=== PATIENT | male | born 1970 | race African-American/Black ===

== ENCOUNTER 2018-02-03 09:09 | Outpatient (CLI) | payer OTHER ==
--- NOTE | 2018-02-03 12:15 | ULT ---
UPPER EXTREMITY VEIN MAPPIN02/03/2018 HISTORY: A 48-year-old male with end-stage renal disease, undergoing evaluation for dialysis access placement. COMPARISON: None. TECHNIQUE: Multiplanar larose-scale sonographic imaging of the vascular structure of the bilateral upper extremiti es obtained with color-flow and spectral analysis, as described below. FINDINGS: Bilateral internal jugular veins, subclavian veins, and axillary veins are patent. The mid subclavia n vein could not be assessed, on the right, secondary to bandaging at a current dialysis access site. Basilic and cephalic veins are patent bilaterally. VESSEL DIAMETER Right brachial artery: 5 mm Right radial artery: 3 mm Right ulnar artery: 2 mm Left brachial artery: 6 mm Left radial artery: 4 mm Left ulnar artery: 4 mm RIGHT CEPHALIC VEIN Above elbow, proximal: 3.6 mm Above elbow, mid: 3.2 mm Above elbow, distal: 3.8 mm At elbow: 4.6 mm Below elbow: 3.1 mm Below elbow, mid: 2.9 mm Below elbow, distal: 2.9 mm RIGHT BASILIC VEIN Above elbow, proximal: 5.1 mm Above elbow, mid: 4.0 mm Above elbow, distal: 5.7 mm At elbow: 4.9 mm Below elbow: 3.1 mm Below elbow, mid: 2.2 mm Below elbow, distal: 2.3 mm LEFT BASILIC VEIN Above elbow, proximal: 5.4 mm Above elbow, mid: 6.0 mm Above elbow, distal: 4.5 mm At elbow: 3.8 mm Below elbow: 2.3 mm Below elbow, mid: 2.5 mm Below elbow, distal: 1.6 mm LEFT CEPHALIC VEIN Above elbow, proximal: 5.3 mm Above elbow, mid: 4.3 mm Above elbow, distal: 4.6 mm At elbow: 7.7 mm Below elbow: 3.9 mm Below elbow, mid: 3.7 mm Below elbow, distal: 3.7 mm IMPRESSION: Dialysis access vascular mapping as detailed above. POS: DAVIAN
== END 2018-02-03 09:10 | disposition home or self-care (01) ==
LOC: ULT 09:09
PROVIDERS: ATTEND Internal Medicine Nephrology
DX: Z01.818 Encounter for other preprocedural examination (principal); I12.0 Hypertensive chronic kidney disease with stage 5 chronic kidney disease or end stage renal disease; N18.6 End stage renal disease
CPT/HCPCS: 93970; G0365

== ENCOUNTER 2018-02-22 10:02 | Day surgery (SDC) | payer OTHER ==
[2018-02-21 16:36] VITALS: BMI 31.6
[2018-02-22] MEDS ORDERED: CEFAZOLIN/Water 2 GM/20 ML SYRINGE ONE (10:45)
[2018-02-22] MEDS ORDERED: Midazolam HCl 2 mg/2 ml Vial ONE ×3 (10:45→13:10)
[2018-02-22] MEDS ORDERED: hydrALAZINE 20 MG/ML VIAL ONE ×3 (10:48→11:52)
[2018-02-22] MEDS ORDERED: Labetalol HCl 100 MG/20 ML VIAL ONE (10:48)
[2018-02-22 10:57] LABS: Hemoglobin 10.3 g/dL (14.0-18.0); Mean Corpuscular HGB CONC 30.4 g/dL (32.0-36.0); Mean Corpuscular Hemoglobin 23.3 pg (27.0-31.0); Mean Corpuscular Volume 76.6 fL (78.0-98.0); Mean Platelet Volume 8.9 fL (7.4-10.4); Platelet Count 169 thou/uL (130-400); RBC Distribution Width 25.2 % (11.5-14.5); Red Blood Cell (RBC) Count 4.43 mill/uL (4.70-6.10); White Blood Cell (WBC) Count 5.6 thou/uL (4.8-10.8)
[2018-02-22 10:58] LABS: #Basophils 0.1 thou/uL (0.0-0.2); #Eosinphils 0.3 thou/uL (0.0-0.7); #Lymphocytes 0.9 thou/uL (1.20-3.40); #Monocytes 0.7 thou/uL (0.11-0.59); #Neutrophils 3.7 thou/uL (1.40-6.50); %Basophils 1.4 % (0.0-1.0); %Eosinophils 5.3 % (0.0-10.0); %Monocytes 11.5 % (0.0-10.0); %Neutrophils 65.9 % (42.0-75.0)
[2018-02-22 11:18] LABS: Anion Gap 15 mmol/L (10-20); BUN (Urea Nitrogen) 32 mg/dL (8.9-20.6); Calc. Creatinine Clearance 23 mL/min (70-130); Calcium 8.8 mg/dL (7.8-10.44); Carbon Dioxide 26 mmol/L (22-29); Chloride 104 mmol/L (98-107); Estimated GFR-MDRD 12; Glucose 92 mg/dL (70-105); Potassium 3.8 mmol/L (3.5-5.1); Sodium 141 mmol/L (136-145)
[2018-02-22 12:12] LABS: Hypochromia SLIGHT = 6-15 cells (100X) (0-5/hpf); MDiff Complete? YES; Microcytosis SLIGHT = 6-15 cells (100X) (0-5/hpf); PLT Morphology Comment Appears Adequate; Polychromasia SLIGHT = 2-3 cells (100X) (0-2/hpf); Schistocytes SLIGHT = 2-5 cells (100X) (0-1/hpf)
[2018-02-22] MEDS ORDERED: Fentanyl 100 MCG/2 ML VIAL ONE (12:50)
[2018-02-22] MEDS ORDERED: Heparin 10,000 UNITS/1 ML VIAL ONE (13:01)
[2018-02-22] MEDS ORDERED: Heparin 5,000 UNITS/ML VIAL ONE (13:01)
[2018-02-22] MEDS ORDERED: Heparin 10,000 UNITS/ 10 ML VIAL ONE ×2 (13:01→17:55)
[2018-02-22] MEDS ORDERED: Bupivacaine HCl 0.5%/Epinephrine 1:200,000/PF 30 ml Vial ONE ×2 (13:01→13:53)
[2018-02-22] MEDS ORDERED: Protamine Sulfate 50 MG/5 ML VIAL ONE (13:01)
[2018-02-22] MEDS ORDERED: Glycopyrrolate 0.2 MG/ML 5 ML SYRINGE ONE (13:01)
[2018-02-22] MEDS ORDERED: PROPOFOL 200 MG/20 ML VIAL ONE (13:01)
[2018-02-22] MEDS ORDERED: Lidocaine 1% PF 5 ML VIAL ONE (13:01)
[2018-02-22] MEDS ORDERED: Lidocaine 2% 10 ML INJ ONE (13:01)
[2018-02-22] MEDS ORDERED: Ondansetron HCl/PF 4 MG/2 ML Vial ONE (13:01)
[2018-02-22] MEDS ORDERED: Bupivacaine HCl 0.25%/Epi 0.0005/PF 10 ML VIAL FS ONE ×3 (13:53→14:00)
--- NOTE | 2018-02-22 14:16 | HP ---
DATE OF : 1970 HISTORY OF PRESENT ILLNESS: Tee Qureshi is a 48-year-old black male with hypertension, with diabe tic nephropathy culminating in a need for dialysis. He had at [facility] placement of ri ght IJ hemodialysis catheter 01/20/2018. He is followed by Dr. Zheng at [facility] and Dr. Andrei miller is his tank driver. He dialyzes at [facility] Wednesday, Wednesday, and Wednesday at 2:00 p.m. He is interested in peritoneal dialysis and has talked to the peritoneal dialysis nurse at [facility] is [place]. He has had vein mapping and veins in both arms are excellent and he is right handed. Th e patient has an umbilical hernia, but does not have inguinal hernias. He has diastasis recti. Plan is for laparoscopic umbilical hernia repair with mesh, laparoscopic peritoneal dialysis catheter and left arm primary fistula. He understands the risks and benefits of the procedure and consents. ALLERGIES: None. TOBACCO/ALCOHOL: Tobacco; 2-3 cigarettes a day. Alcohol none for more than 2 years. MEDICATIONS: Furosemide 80 mg a day, sevelamer 800 mg t.i.d., hydralazine 100 mg t.i.d., terazosin 1 0 mg by mouth b.i.d., isosorbide ER 60 mg every day a.m. PAST MEDICAL HISTORY: Hypertension, hyperlipidemia, end-stage renal disease on maintenance dialysis. PAST SURGICAL HISTORY: Hemodialysis catheter. He has had a normal colonoscopy. SOCIAL HISTORY: The patient is single. He has not worked in a few years. REVIEW OF SYSTEMS: Ten point noncontributory. FAMILY HISTORY: Noncontributory. PHYSICAL EXAMINATION: VITAL SIGNS: Weight 251 pounds, 6 feet 1 inches, 204/141, 93, 98.4 degrees. HEENT: Unremarkable. LUNGS: Clear to auscultation. CARDIAC: Regular rate and rhythm without murmur or gallop. ABDOMEN: Soft, diastasis recti, umbilical hernia, 1 cm defect. Groins without hernias. : Testicles normal. Patient examined standing and supine during Valsalva. EXTREMITIES: Chronic venous stasis disease, hyperpigmentation, mild edema of feet and ankles. NEURO: Neurologically intact. No focal deficit. HEENT: Unremarkable. No adenopathy appreciated. ASSESSMENT AND PLAN: 1. End-stage renal disease, desires peritoneal dialysis. I have talked to him about the risks and b enefits and possibility of malfunction of his hemodialysis catheter and necessity of revisions. I cates ve recommended placement of a left arm fistula. We will plan this next week. He also was appreciate d to have an umbilical hernia. The plan is for operation as described above under general anesthesia . He understands risks and benefits and consents. 2. Hypertension. 3. Chronic venous stasis disease.
[2018-02-22] MEDS ORDERED: SUGAMMADEX SODIUM 500 MG/5 ML VIAL ONE ×2 (15:46→15:47)
[2018-02-22] MEDS ORDERED: Promethazine HCl 25 MG/ML VIAL SLOW IVP PRN (16:06)
[2018-02-22] MEDS ORDERED: Promethazine HCl 25 MG/ML VIAL IM PRN (16:06)
[2018-02-22] MEDS ORDERED: Ondansetron HCl/PF 4 MG/2 ML Vial IVP PRN (16:06)
[2018-02-22] MEDS ORDERED: HYDROcodone/Acetaminophen 5/325 mg Tablet ONE (17:06)
--- NOTE | 2018-02-22 23:21 | OP ---
DATE OF PROCEDURE: 02/22/2018 PREOPERATIVE DIAGNOSES: End-stage renal disease on hemodialysis via right internal jugular vein cath eter, desires peritoneal dialysis and umbilical hernia. POSTOPERATIVE DIAGNOSES: End-stage renal disease on hemodialysis via right internal jugular vein cat heter, desires peritoneal dialysis and umbilical hernia. PROCEDURE: Laparoscopic 9 cm diameter mesh repair of umbilical hernia, laparoscopic peritoneal dialy sis catheter, double cuffed pigtail. Left Zander fistula, 4 mm coronary dilator outflow, cephalic ve in wrist, ligation of collaterals clips. SURGEON: Sumit Aiken M.D. ANESTHESIA: General. Local of 0.25% Marcaine with epinephrine, 60 mL was mixed with 2% Xylocaine, 2 0 mL. PROCEDURE IN DETAIL: The patient was taken to the operating room under general anesthesia, abdomen a nd left arm, axilla, chest prepared with ChloraPrep, draped in routine fashion. Local anesthetic inf iltrated into the skin and subcutaneous tissue about the operative site. Right lateral subcostal inc ision made. Pneumoperitoneum to 15 mmHg was obtained with the Veress needle, replacing it with 5 por t and video laparoscope inserted. Right lateral mid abdominal incision made and an 11 port placed. Right lower quadrant lateral incision made and a 5 port placed. There were some omental adhesions up per abdomen left in place to keep the omentum out of the pelvis. There is no umbilical hernia defect . I then made an incision infraumbilical, carried down the skin and subcutaneous tissue and the fasc ia approximated with [id number] type fashion with sutures of 0 PDS pop-offs. Subcutaneous tissu es approximated with 3-0 Monocryl, skin with subdermal 4-0 Monocryl and DermaGlue applied. Attention was then turned to peritoneal dialysis catheter placement. A counter incision was made periumbilica l left lower quadrant and stab incision made just inferior lateral to this for the exit site. An 8 m m port then inserted directly caudally and the subcutaneous tissue penetrating the rectus sheath visu alized laparoscopically, penetrating the peritoneum caudally and under laparoscopic visualization, a double cuffed pigtail peritoneal dialysis catheter placed and directed towards the pelvis. Then, the internal cuff placed in the rectus sheath and 8 mm port removed. [place] dissector were used to tu nnel the peritoneal dialysis catheter out the excess site, placed an external cuff beneath the skin e xit site and subcutaneous tissue was approximated with 3-0 Monocryl, skin with subdermal 4-0 Monocryl and catheter flushed with heparin saline solution and sterile dressings applied. Pneumoperitoneum r educed. All instruments removed after 11 mm port site GraNee needle used 0 Vicryl suture. Skin inci sions approximated with subdermal 4-0 Monocryl and DermaGlue applied. Sterile dressings applied. An incision was made in the left wrist carried down the skin and subcutaneous tissue longitudinally b etween the radial artery and cephalic vein, both of which were dissected free and the patient given 6 000 units heparin intravenously. After adequate circulation time, the cephalic vein on the hand side was ligated with 3-0 silk tie and branches divided between 4-0 silk ties and clips and spatulated an d interrogated with coronary dilators, passing coronary dilators from a 2 mm to a 4 mm coronary dilat or out the cephalic vein outflow, marking it in the forearm. Incision was made over collateral vesse ls and they were dissected free and clips applied. Skin approximated with subdermal 4-0 Monocryl. A t this point, radial arteries clamped proximally and distally and longitudinal arteriotomy made sharp ly for a 2.5 cm anastomosis. Vein accordingly spatulated and end vein to side radial artery anastomo sis. Continuous suture of 6-0 Prolene radial artery was of excellent caliber, vascular clamps were r eleased and there was excellent flow in the fistula interrogated by Doppler. The patient was given 5 0 mg of protamine intravenously. Subcutaneous tissue was approximated with 3-0 Monocryl, skin with s ubdermal 4-0 Monocryl and DermaGlue applied.
== END 2018-02-22 18:31 | disposition home or self-care (01) ==
LOC: SDC 10:02
PROVIDERS: ATTEND Specialist
PROC: 031C0ZF Bypass Left Radial Artery to Lower Arm Vein, Open Approach (ICD-10-PCS; principal; 2018-02-22)
PROC: 0WHG43Z Insertion of Infusion Device into Peritoneal Cavity, Percutaneous Endoscopic Approach (ICD-10-PCS; principal; 2018-02-22)
PROC: 0WQF0ZZ Repair Abdominal Wall, Open Approach (ICD-10-PCS; principal; 2018-02-22)
DX: I12.0 Hypertensive chronic kidney disease with stage 5 chronic kidney disease or end stage renal disease (principal); E11.22 Type 2 diabetes mellitus with diabetic chronic kidney disease; N18.6 End stage renal disease; M62.08 Separation of muscle (nontraumatic), other site; K66.0 Peritoneal adhesions (postprocedural) (postinfection); F17.210 Nicotine dependence, cigarettes, uncomplicated; E78.5 Hyperlipidemia, unspecified; E11.21 Type 2 diabetes mellitus with diabetic nephropathy; I87.8 Other specified disorders of veins; Z79.899 Other long term (current) drug therapy; Z99.2 Dependence on renal dialysis
CPT/HCPCS: 80048; 85025; 93005; 93010; J0131; J0360; J0670; J1644; J2001; J2250; J2405; J2704; J2720; J3010